=== PATIENT | male | born 1985 | race Caucasian/White ===

== ENCOUNTER 2017-10-06 20:38 | Emergency (ER) | payer SELFPAY ==
[~2017-10-06] VITALS: Ht 185.4 cm; Wt 75.0 kg
[~2017-10-06 20:38] MED LIST: AUGM875T PO; CORTI10A AS; ULTR50TA PO
[2017-10-06 20:44] VITALS: BP 124/71; PULSE 90; RESP 16; TEMP 97.9; O2SAT 96
--- NOTE | 2017-10-06 20:44 | PD ---
HPI Chief Complaint: overdose Time Seen by Provider: 20:43 Travel History International Travel<30 days: No Contact w/Intl Traveler<30days: No Traveled to known affect area: No History of Present Illness HPI 32-year-old male with history of heroin dependency, presents emergency department today for evaluation following an overdose. Patient was found unresponsive by his girlfriend. [facility] ambulance was called. Patient was given 4 mg intranasal Narcan with no response. He is then given 2 additional doses of 0.4 mg IV and responded. He was a GCS of 15 upon arrival. Patient states this is his fifth time overdosing with heroin. He tells me he typically takes Suboxone that is not prescribed to him however when he cannot get Suboxone, he injects heroin. Currently he reports a headache. He tells me he is nauseous. He denies any focal deficits weakness. He has no other symptoms to report. [facility] Past Medical History Medical History: Denies Significant Hx Past Surgical History Tympanostomy Tube: Yes Other Surgery: Yes (SEPTUM) Social History Alcohol Use: No Tobacco Use: Yes Substance Use: Yes Allergies-Medications (Allergen,Severity, Reaction): Coded Allergies: No Known Allergies (Unverified , 01/17/16) Reported Meds & Prescriptions Reported Meds & Active Scripts Active Ultram (Tramadol HCl) 50 Mg Tab 50 Mg PO Q4H PRN Augmentin 875 mg Tab (Amoxicillin & Pot Clavulanate 875 mg Tab) 875 Mg Tab 875 Mg PO BID Cortisporin Otic Solution (Neomycin/Polymyxin/Hydrocortisone) 10 Ml Soln 4 Drop QID Review of Systems Except as stated in HPI: all other systems reviewed are Neg Physical Exam Narrative GENERAL: Well-nourished male patient, awake, in no acute distress SKIN: Focused skin assessment warm/dry. Multiple injection sites entrapments in the bilateral upper extremities. HEAD: Atraumatic. Normocephalic. EYES: Pupils equal and round. No scleral icterus. No injection or drainage. ENT: No nasal bleeding or discharge. Mucous membranes pink and moist. NECK: Trachea midline. No JVD. CARDIOVASCULAR: Regular rate and rhythm. No murmur appreciated. RESPIRATORY: No accessory muscle use. Clear to auscultation. Breath sounds equal bilaterally. GASTROINTESTINAL: Abdomen soft, non-tender, nondistended. Hepatic and splenic margins not palpable. MUSCULOSKELETAL: No obvious deformities. No clubbing. No cyanosis. No edema. NEUROLOGICAL: Awake and alert. No obvious cranial nerve deficits. Motor grossly within normal limits. Normal speech. Data Data Last Documented VS Vital Signs Date Time Temp Pulse Resp B/P (MAP) Pulse Ox O2 Delivery O2 Flow Rate FiO2 10/06/17 20:44 97.9 90 16 124/71 (88) 96 Orders Orders Sodium Chlor 0.9% 1000 Ml Inj (Ns 1000 M (10/06/17 20:45) Ondansetron Odt (Zofran Odt) (10/06/17 20:45) MDM Medical Decision Making Medical Screen Exam Complete: Yes Emergency Medical Condition: Yes Medical Record Reviewed: Yes Differential Diagnosis Heroin overdose versus dependency versus polysubstance abuse Narrative Course 32-year-old male presents emergency department for evaluation following an overdose. Patient is awake and oriented 3. He has no focal deficits. Patient does tell me he is heroin prior to his girlfriend finding him. I discussed the patient my attending physician. He will be observed for 4 hours. Pending that he remained stable, patient will be discharged at that time. Diagnosis Primary Impression: Heroin overdose Qualified Codes: T40.1X1A - Poisoning by heroin, accidental (unintentional), initial encounter Referrals: [facility] (Out patient) Patient Instructions: General Instructions, Narcotic Abuse (ED) Additional Instructions: Follow-up with a primary care provider Stop using heroin Return immediately with acute worsening of symptoms Med/Other Pt SpecificInfo: No Change to Meds Disposition: 01 DISCHARGE HOME Condition: Stable Myah Moreira Oct 06, 2017 20:44
[2017-10-06] MEDS ORDERED: SODIUM CHLOR 0.9% 1000 ML INJ 1,000 ML IV ONE (20:45)
[2017-10-06] MEDS ORDERED: ONDANSETRON ODT 4 MG TAB PO ONE (20:45)
[2017-10-07] VITALS: BP 118/74; PULSE 88; RESP 14; O2SAT 99
--- NOTE | 2017-10-07 01:19 | PD ---
Physical Exam Date Seen by Provider: Oct 07, 2017 Time Seen by Provider: 01:17 Narrative The patient is a 32-year-old male was initially evaluated by the mid- level provider. Please refer to the initial history, physical, diagnostic evaluation, and treatment modality plan. The patient was signed out at 11 PM with observation pending for heroin overdose. The patient was administered several doses of Narcan prior to arrival. Upon arrival the patient was awake, alert, and oxygenating in the high 90s without oxygen. Data Data Last Documented VS Vital Signs Date Time Temp Pulse Resp B/P (MAP) Pulse Ox O2 Delivery O2 Flow Rate FiO2 10/06/17 20:44 97.9 90 16 124/71 (88) 96 Orders Orders Sodium Chlor 0.9% 1000 Ml Inj (Ns 1000 M (10/06/17 20:45) Ondansetron Odt (Zofran Odt) (10/06/17 20:45) MDM Medical Record Reviewed: Yes Supervised Visit with TOM: Yes Differential Diagnosis Differential diagnosis includes heroin overdose, opiate overdose, polysubstance abuse, substance ingestion. Narrative Course The patient was initially evaluated by the mid-level provider. The patient was awake and alert upon presentation, however, was administered several doses of Narcan in the field by EMS personnel. Upon arrival the patient was awake and alert, he was oriented and satting in the high 90s without oxygen. The patient was monitored for 4 hours until 1 AM, required no oxygen, no evidence of hypoxia. He was awake, alert, and oriented. He was advised to stop using Narcan and was referred to [facility]. Diagnosis Primary Impression: Heroin overdose Qualified Codes: T40.1X1A - Poisoning by heroin, accidental (unintentional), initial encounter Referrals: [facility] (Out patient) Patient Instructions: General Instructions, Narcotic Abuse (ED) Departure Forms: Tests/Procedures Additional Instruction: Follow-up with a primary care provider Stop using heroin Return immediately with acute worsening of symptoms Med/Other Pt SpecificInfo: No Change to Meds Disposition: 01 DISCHARGE HOME Condition: Stable Christoph Webster MD Oct 07, 2017 01:19
== END 2017-10-07 01:29 | disposition home or self-care (01) ==
LOC: NEPE 20:38
DX: T40.1X1A Poisoning by heroin, accidental (unintentional), initial encounter (principal); Z72.0 Tobacco use
CPT/HCPCS: 96360; 99284; J7030